=== PATIENT | female | born 1955 | race Caucasian/White ===

== ENCOUNTER 2020-12-06 15:28 | Emergency (ER) | payer BC, SELFPAY ==
[2020-12-06 16:36] VITALS: BP 148/91; PULSE 74; RESP 16; TEMP 36.8; O2SAT 99; BMI 23.3
[2020-12-06] MEDS: Lidocaine HCl 1 % MPF 5 ML VIAL SUBCUT ×2 (17:58→17:59)
[2020-12-06] MEDS: Diphth,Pertus(ACell),Tet Adult 0.5 ML SYRINGE IM (17:59)
--- NOTE | 2020-12-06 18:06 | ED.WOUNDLAC ---
HPI - Wound/Laceration General Chief Complaint: Wound/Laceration Stated Complaint: wound/lacaration Time Seen by Provider: 12/06/20 17:23 History of Present Illness HPI narrative: Patient complains of left forearm laceration when she cut herself with gardening to0l just prior to arrival, no numbness weakness or tingling Related Data Allergies Allergy/AdvReac Type Severity Reaction Status Date / Time erythromycin base Allergy Intermediate SKIN Verified 12/06/20 16:35 [ERYTHROMYCIN BASE] REACTION Review of Systems Review of Systems: Positive for left forearm at laceration Negatives are no fever no chills no dizziness no weakness no fainting no feeling faint no numbness weakness or tingling no joint pain no other injury Yes all other systems are reviewed and are negative PMFSH Past Medical History Source: nursing notes reviewed Medical History (Updated 12/07/20 @ 00:01 by Samir Chun) No known health problems Social History Social History Advance Directives: No Advance Directives Information Provided: Yes Patient : No Physical Exam Vital Signs: Vital Signs: Last Vital Signs Temp 98.3 F 12/06/20 16:36 Pulse 74 12/06/20 16:36 Resp 16 12/06/20 16:36 BP 148/91 H 12/06/20 16:36 Pulse Ox 99 12/06/20 16:36 Body Mass Index 23.3 General appearance is no acute distress Head is normocephalic atraumatic Neck is supple The respiratory no acute distress Extremities there is a 2.5 cm left forearm laceration, neurovascular intact distal and full range of motion in all joints Other extremities normal Neuro no gross motor or sensory deficit Course Course Course Narrative: Left forearm laceration is cleansed and irrigated with normal saline Anesthesia is 8 cc of 1% lidocaine The wound is explored and no foreign body identified Suturing is 4-0 nylon sutures, 6 sutures placed Bleeding is controlled and dressing is applied Discharge Plan Discharge Clinical Impression: Laceration Patient Disposition: Home, Self-Care Additional Instructions: Suture removal in 7 days You got a tetanus shot Return any time for redness swelling fever, any sign of infection any concerns Interventions: ED Discharge Assessment Last Done: 12/06/20 18:43 Discharge Date/Time: 12/06/20 18:06
== END 2020-12-06 18:06 | disposition home or self-care (01) ==
PROVIDERS: Emergency Provider Internal Medicine; PCP Internal Medicine
DX: S51.812A Laceration without foreign body of left forearm, initial encounter (principal); W27.1XXA Contact with garden tool, initial encounter; Y93.H2 Activity, gardening and landscaping; Y92.017 Garden or yard in single-family (private) house as the place of occurrence of the external cause; Y99.9 Unspecified external cause status
CPT/HCPCS: 12001; 90471; 90715; 99284